=== PATIENT | male | born 1965 | race Caucasian/White ===

== ENCOUNTER 2023-01-02 11:00 | Emergency (ER) | payer OTHER ==
[~2023-01-02] VITALS: Ht 172.7 cm; Wt 74.8 kg
[~2023-01-02 11:00] MED LIST: METF500 PO
[2023-01-02 11:15] VITALS: BP 137/71
== END 2023-01-02 13:05 | disposition home or self-care (01) ==
LOC: ER 11:00
DX: H61.21 Impacted cerumen, right ear (principal); Z79.84 Long term (current) use of oral hypoglycemic drugs
CPT/HCPCS: 69209; 99282-25; A9270